=== PATIENT | male | born 1995 | race Caucasian/White ===

== ENCOUNTER 2019-01-06 01:20 | Emergency (ER) | payer MEDICAID ==
[~2019-01-06] VITALS: Ht 177.8 cm; Wt 77.1 kg
[2019-01-06 01:20] VITALS: BP_SYST 126
--- NOTE | 2019-01-06 01:20 | NUR ---
Patient to ER bed [address] to gown for evaluation. Side rails up.
--- NOTE | 2019-01-06 01:21 | NUR ---
ER at bedside examining patient.
[2019-01-06 01:31] VITALS: BP_SYST 125
--- NOTE | 2019-01-06 01:31 | NUR ---
Patient given written and verbal discharge instructions and verbalizes understanding. ER MD discussed with patient the results and treatment provided. Patient in stable condition. ID arm band removed. NO Rx of given. Patient educated on pain management and to follow up with PMD. Pain Scale 0/10. Opportunity for questions provided and answered. Medication side effect fact sheet provided.
== END 2019-01-06 01:30 | disposition home or self-care (01) ==
LOC: SED 01:20
DX: Z04.1 Encounter for examination and observation following transport accident (principal); V43.52XA Car driver injured in collision with other type car in traffic accident, initial encounter; Y93.89 Activity, other specified; Y92.410 Unspecified street and highway as the place of occurrence of the external cause; Y99.8 Other external cause status
CPT/HCPCS: 99283